=== PATIENT | female | born 1985 | race Two or more races ===

== ENCOUNTER 2024-07-19 06:10 | Day surgery (SDC) | payer OTHER ==
[2024-07-08 09:15] LABS: PH,URINE 5.5 (5.0-8.0); URINE APPEARANCE Cloudy; URINE BILIRRUBIN Negative (NEGATIVE); URINE BLOOD Negative; URINE COLOR Yellow; URINE GLUCOSE Negative (NEGATIVE); URINE KETONE Negative (NEGATIVE); URINE LEUKOCYTE Moderate; URINE NITRATE Negative; URINE PROTEIN Negative (NEGATIVE); URINE UROBILINOGEN 0.2 E.U./dl
[2024-07-08 09:17] LABS: URINE EPITHELIAL CELLS 103.3 uL (0.0-38.8); URINE RBC 11.7 uL (0.0-20.8); URINE WBC 152.3 uL (0.0-23.2)
[2024-07-08 09:29] LABS: URINE BACTERIA > 9821.5 uL (0.0-1933)
[2024-07-08 09:43] LABS: BASO % 0.8 % (0.1-1.2); EOS # 0.15 (0.04-0.54); EOS % 3.1 % (0.7-7.0); HEMATOCRIT 36.9 % (34.1-44.9); HEMOGLOBIN 11.7 g/dL (11.2-15.7); LYMPH # 1.31 (1.18-3.74); MEAN CORPUSCULAR HEMOGLOBIN 24.5 pg (25.6-32.2); MONO # 0.46 (0.24-0.82); MONO % 9.5 % (4.7-12.5); NEUT # 2.89 (1.56-6.13); NEUT % 59.4 % (34.0-71.1); PLATELET COUNT 349 K/uL (163-369); RED BLOOD COUNT 4.77 M/uL (3.93-5.22); RED CELL DISTRIBUTION WIDTH 16.8 % (11.6-14.4)
[2024-07-08 10:43] LABS: INR 0.97; PARTIAL THROMBOPLASTIN TIME 28.7 SECONDS (22.0-34.0); PROTHROMBIN TIME 10.6 SECONDS (9.0-11.5)
[2024-07-08 10:55] LABS: ALBUMIN 3.6 gm/dL (3.4-5.0); BILIRUBIN TOTAL 0.26 mg/dL (0.3-1.2); CALCIUM 8.5 mg/dL (8.5-10.1); CREATININE SERUM 0.76 mg/dL (0.55-1.02); GFR 84.72; GLOBULINA 3.9 G/DL (2.4-3.5); POTASSIUM 4.49 mEq/L (3.5-5.1); TOTAL PROTEIN 7.5 gm/dL (6.4-8.2)
[~2024-07-19 06:10] MED LIST: HEMA-PLEX; ZYRTEC10 M3 PO
[2024-07-19] MEDS ORDERED: POVIDONE-IODINE 118 ML BOTT TOP ONE (13:06)
== END 2024-07-19 18:55 | disposition home or self-care (01) ==
LOC: CIR.AMB 06:10
PROVIDERS: ATTEND Obstetrics & Gynecology
DX: N93.8 Other specified abnormal uterine and vaginal bleeding (principal)